=== PATIENT | female | born 1980 ===

== ENCOUNTER 2021-08-30 09:02 | Inpatient (IN) | payer MEDICAID, OTHER ==
[2021-08-30] MEDS ORDERED: METOCLOPRAMIDE 10 MG/2 ML INJ IV ONE (09:50)
[2021-08-30] MEDS ORDERED: FAMOTIDINE 20 MG/2 ML INJ IV ONE (09:50)
[2021-08-30] MEDS ORDERED: LIDOCAINE (2%) 20 MG/1 ML VIAL 20 ML MDV INFILTRATI ONE (09:51)
[2021-08-30] MEDS ORDERED: OXYTOCIN DRIP 30 UNITS/500 ML BAG IV SCH (10:00)
[2021-08-30] MEDS ORDERED: LACTATED RINGERS 1,000 ML IV SCH ×2 (10:00→22:00)
--- NOTE | 2021-08-30 10:06 | History and Physical Report ---
History of Present Illness Date of examination: 08/30/21 Date of admission: 08/30/21 09:02 Chief complaint: ERCS at 39.1 weeks Past History Past Surgical History: section - Obstetrical History Expected Date of Delivery: 09/05/21 Actual Gestation: 39 Week(s) 1 Day(s) : 2 Para: 1 Medications and Allergies Allergies Allergy/AdvReac Type Severity Reaction Status Date / Time No Known Allergies Allergy Verified 08/30/21 09:43 Home Medications Medication Instructions Recorded Confirmed Last Taken Type Albuterol Sulfate 1 inhalation IH PRN PRN 08/30/21 08/30/21 08/29/21 History One Daily Tablet 1 tab PO DAILY 08/30/21 08/30/21 08/28/21 History Active Meds: Active Medications Acetaminophen (Acetaminophen 325 Mg Tab) 650 mg PO Q4H PRN PRN Reason: Pain, Mild (1-3) Butorphanol Tartrate (Butorphanol 2 Mg/1 Ml Inj) 2 mg IV Q2H PRN PRN Reason: Pain , Severe (7-10) Citric Acid/Sodium Citrate (Bicitra Oral Liqd 30ml) 30 ml PO ONCE ONE Stop: 08/30/21 09:51 Famotidine (Famotidine 20 Mg/2 Ml Inj) 20 mg IV ONCE ONE Stop: 08/30/21 09:51 Lactated Ringer's (Lactated Ringers) 1,000 mls @ 2,250 mls/hr IV PREOP KENNY Stop: 08/31/21 10:27 Oxytocin/Sodium Chloride (Pitocin/Ns 30 Unit/500ml) 30 units in 500 mls @ 0 mls/hr IV TITR KENNY; Protocol Cefazolin Sodium (Ancef/Sterile Water 2 Gm/20 Ml) 2 gm in 20 mls @ 80 mls/hr IV PREOP NR; Protocol Lidocaine (Lidocaine (2%) 20 Mg/1 Ml Vial 20 Ml Mdv) 20 ml INFILTRATI ONCE ONE Stop: 08/30/21 09:52 Metoclopramide HCl (Metoclopramide 10 Mg/2 Ml Inj) 10 mg IV ONCE ONE Stop: 08/30/21 09:51 Nalbuphine HCl (Nalbuphine 10 Mg/1 Ml Inj) 10 mg IV Q2H PRN PRN Reason: Pain, Moderate (4-6) - Vital Signs Vital signs: Vital Signs Pulse BP Pulse Ox 83 123/78 99 08/30/21 09:40 08/30/21 09:40 08/30/21 09:40 Temp Pulse Resp BP Pulse Ox 97 H 123/78 96 08/30/21 10:00 08/30/21 09:40 08/30/21 10:00 Results Result Diagrams: 08/30/21 09:58 All other labs normal. Assessment and Plan NPO, adult nurse practitioner to OR for procedure Informed consent Law Strauss MD
[2021-08-30 10:22] LABS: Basophils % (Auto) 0.3 % (0.0-1.8); Eosinophils # (Auto) 0.2 K/mm3 (0.0-0.4); Eosinophils % (Auto) 1.4 % (0.0-4.3); Hematocrit 33.1 % (30.3-42.9); Hemoglobin 11.6 gm/dl (10.1-14.3); Lymphocytes # (Auto) 1.7 K/mm3 (1.2-5.4); Lymphocytes % (Auto) 14.8 % (13.4-35.0); Mean Corpuscular HGB Conc 35 % (30-34); Mean Corpuscular Volume 95 fl (79-97); Monocytes # (Auto) 0.7 K/mm3 (0.0-0.8); Platelet Count 266 K/mm3 (140-440); Red Blood Count 3.51 M/mm3 (3.65-5.03); Red Cell Distribution Width 13.9 % (13.2-15.2)
[2021-08-30] MEDS ORDERED: NalbUPHINE 10 MG/1 ML INJ IV PRN (11:00)
[2021-08-30] MEDS ORDERED: ACETAMINOPHEN 325 MG TAB PO PRN (11:00)
[2021-08-30] MEDS ORDERED: ceFAZolin/Water 2 GM/20 ML 2 GM/20 ML SYRINGE IV NR (11:00)
[2021-08-30] MEDS ORDERED: BUTORPHANOL 2 MG/1 ML INJ IV PRN (11:00)
[2021-08-30] MEDS ORDERED: ceFAZolin/STERILE WATER 2 GM/20 ML SYRINGE IV ONE (12:00)
[2021-08-30] MEDS ORDERED: BUPIVACAINE/PF (0.5%) 5 MG/1 ML 30 ML VIAL INFILTRATI ONE (12:27)
[2021-08-30] MEDS ORDERED: dexAMETHasone 20 MG/5 ML VIAL ONE (12:27)
[2021-08-30] MEDS ORDERED: KETOROLAC 30 MG/1 ML INJ ONE (12:27)
[2021-08-30] MEDS ORDERED: LACTATED RINGERS 1,000 ML ONE (12:27)
[2021-08-30] MEDS ORDERED: ONDANSETRON 4 MG/2 ML INJ ONE ×2 (12:27→15:00)
--- NOTE | 2021-08-30 13:06 | Procedure Note ---
OB Delivery Note - Delivery Date of Delivery: 08/30/21 Surgeon: TYESHA AZAR Estimated blood loss: other (700ml) - Section Preop diagnosis: repeat Postop diagnosis: same section procedure: repeat low transverse Disposition: PACU Complications: none Narrative: Preop diagnosis: IUP at 39.1 weeks, previous sectionx1 Postop diagnosis: Same Procedure: Repeat low transverse section via Pfannenstiel incision Surgeon: Dr. Tyesha Azar Anesthesia spinal Complications none EBL 700 ml IV fluids 1000mL Urine output 200 mL, clear Drains Pierre to gravity Findings: Viable female with weight 3210gms and 9/9, normal uterus tubes and ovaries bilaterally Procedure: Patient was consented in OB triage, taken to the operating room where she received excellent spinal anesthesia. She was then placed in the dorsal supine position with a leftward tilt. The abdomen was prepped and draped in a sterile fashion, and a timeout was verified. Adequate anesthesia was confirmed prior to the skin incision. A Pfannenstiel skin incision was made with a scalpel taken down to the underlying structures and the fascia was incised in the midline. The incision was extended laterally with curved Gonsales scissors, the superior and inferior aspects of the fascial incisions were grasped with Lakisha clamps and the rectus muscles dissected sharply. The abdomen was entered bluntly in the midline carried down inferiorly with good visualization of the bladder. The vesicouterine peritoneum was tented with Scottish forceps and incised in the midline with Metzenbaum scissors and the vesicouterine peritoneum taken down sharply. The uterine incision was then made sharply with a scalpel. The inferior and superior aspect of the uterine incisions were extended bluntly, the baby's head was delivered atraumatically. The remainder of the delivery was uncomplicated, no nuchal cord. The cord was clamped and cut and baby handed to waiting NICU team. An intact placenta with three-vessel cord delivered manually. The uterus was then cleared of all clots and debris and the uterus exteriorized. The uterine incision was closed in 2 layers of 0 vicryl with excellent hemostasis. The abdomen was then irrigated with warm normal saline and the uterus placed back into the abdomen atraumatically. A second look at the uterine incision assured hemostasis. The peritoneum was closed with 3-0 Vicryl, the rectus muscles approximated with 3-0 Vicryl, and the fascia closed with 0 Vicryl in the usual fashion. The subcuticular structures were closed with interrupted sutures of 3-0 Vicryl and the skin closed with 4-0 Monocryl. A pressure dressing was applied. All sponge needle and instrument counts were correct x2. There were no complications. Mom and baby stable to PACU. EBL 700 mL Law Azar MD
[2021-08-30] MEDS ORDERED: SIMETHICONE 80 MG CHEW TAB PO PRN (13:14)
[2021-08-30] MEDS ORDERED: LANOLIN/ZINC/DIMETHICONE (LANSINOH) 7 GM TP PRN (13:14)
[2021-08-30] MEDS ORDERED: NALOXONE 0.4 MG/1 ML INJ IV PRN (13:14)
[2021-08-30] MEDS ORDERED: IBUPROFEN 600 MG TAB PO PRN (13:14)
[2021-08-30] MEDS ORDERED: ONDANSETRON 4 MG/2 ML INJ IV PRN (13:14)
[2021-08-30] MEDS ORDERED: WITCH HAZEL/ GLYCERIN PAD TP PRN (13:14)
[2021-08-30] MEDS ORDERED: PROMETHAZINE 25 MG RECT SUPP PR PRN (13:14)
[2021-08-30] MEDS ORDERED: ePHEDrine SULFATE 50 MG/1 ML INJ ONE ×2 (13:16→14:27)
--- NOTE | 2021-08-30 13:41 | Anesthesia Day of Surgery ---
Anesthesia Day of Surgery - Day of Surgery Patient Examined: Yes Patient H&P Reviewed: Yes Patient is NPO: Yes
--- NOTE | 2021-08-30 13:41 | Anesthesia Consultation ---
Anesthesia Consult and Med Hx Date of service: 08/30/21 - Airway Anesthetic Teeth Evaluation: Good ROM Head & Neck: Adequate Mental/Hyoid Distance: Adequate Mallampati Class: Class II Intubation Access Assessment: Probably Good - Pulmonary Exam CTA: Yes - Cardiac Exam Cardiac Exam: RRR - Pre-Operative Health Status ASA Pre-Surgery Classification: ASA3 Proposed Anesthetic Plan: Spinal - Pulmonary Hx Smoking: No Hx Asthma: Yes SOB: No COPD: No Hx Pneumonia: No Hx Sleep Apnea: No - Cardiovascular System Hx Hypertension: No - Central Nervous System Hx Seizures: No Hx Psychiatric Problems: No - Endocrine Hx Renal Disease: No Hx Hypothyroidism: No Hx Hyperthyroidism: No - Hematic Hx Anemia: No Hx Sickle Cell Disease: No - Other Systems Hx Alcohol Use: Yes (Occassionally /not during preg)
--- NOTE | 2021-08-30 13:42 | Progress Note ---
Spinal Anesthesia Block - Spinal Anesthesia Block Start Time: 11:47 Stop Time: 11:50 Performed by:: MAKENZIE STRATTON Procedure: Sitting, sterile chlorahexadine 0.5% prep/drape, 1% lidocaine skin local, 25G spinal needle + introducer at L3-4, + CSF, - Heme, [1.9 ml 0.5% bupivacaine + 10 mcg dexmedetomidine] injected, drape removed, patient positioned supine with left uterine displacement, and spinal level verified to be adequate prior to surgery.
[2021-08-30] MEDS ORDERED: METHYLERGONOVINE MALEATE 0.2 MG/ML VIAL IM ONE ×2 (13:50→14:17)
[2021-08-30] MEDS ORDERED: miSOPROStol 200 MCG TAB ONE ×2 (13:59→14:37)
[2021-08-30] MEDS ORDERED: propofoL 200 MG/20 ML VIAL IV ONE (14:44)
[2021-08-30] MEDS ORDERED: KETAMINE/STERILE WATER 50 MG/ML SYRINGE ONE (14:44)
[2021-08-30] MEDS ORDERED: BICITRA ORAL LIQD 30ML PO NR (15:00)
[2021-08-30] MEDS ORDERED: SODIUM CHLORIDE 0.9% 500 ML 1,000 ML ONE (15:28)
[2021-08-30] MEDS ORDERED: PHENYLEPHRINE/NS 1,000 MCG/10 ML SYRINGE (OR USE) IV ONE (15:28)
[2021-08-30 15:29] LABS: Hemoglobin 6.1 gm/dl (10.1-14.3); Mean Corpuscular HGB Conc 35 % (30-34); Mean Corpuscular Volume 97 fl (79-97); Platelet Count 289 K/mm3 (140-440); Red Blood Count 1.82 M/mm3 (3.65-5.03); Red Cell Distribution Width 13.6 % (13.2-15.2)
[2021-08-30] MEDS ORDERED: SODIUM CHLORIDE 0.9% 500 ML 500 ML IV ONE (15:30)
[2021-08-30 15:45] LABS: Hematocrit 17.7 % (30.3-42.9)
[2021-08-30 15:48] LABS: INR 1.05 (0.87-1.13); Partial Thromboplastin Time 27.4 Sec. (24.2-36.6)
[2021-08-30] MEDS ORDERED: SODIUM CHLORIDE 0.9% 500 ML 500 ML IV SCH (15:52)
--- NOTE | 2021-08-30 15:52 | Event Note ---
Date: 08/30/21 I was called to PACU for urgent evaluation of immediate hemorrhage. At bedside patient was hypotensive and tachycardic with active vaginal bleeding with lower uterine segment atony. Patient had intermittent atony with bimanual uterine massage. She received Methergine 0.2 mg IM x3 doses, Cytotec 800 mcg per rectum, Cytotec 200 mcg orally. I called for 2 units of blood stat, I called for a second IV line to be placed immediately. I called anesthesia and asked for the OR to be open for a exam under anesthesia with D&C possible exploratory laparotomy. I explained to patient's milliliters taking patient back to the OR for active hemorrhage. Stat labs including a CBC and coags were sent by anesthesia. She was taken to the OR where excellent spinal sedation and IV sedation were administered. He was placed in the dorsal lithotomy position and prepped and draped. Exam under anesthesia revealed a boggy uterus specifically lower uterine segment atony. Sharp curettage with suction revealed small retained products of conception. The uterus was curettaged sharply with a curette until the grittiness of the basalis endometrium was appreciated in all 4 quadrants. The vaginal vault was then packed with a Kerlix. The uterus remained firm at the completion of the curettage. Intraoperatively patient received 2 units of packed red blood cells. We will check her H&H and consider transfusion of another 2 units PRBCs if necessary. Patient remained stable throughout the procedure, she will recover in the labor and delivery bed with one-on-one nursing. All of patient's body will be weighed to account for total EBL. All sponge needle and instrument counts are correct x2. Patient will continue with the Pierre catheter. Vaginal Kerlix was left in place until the morning. Law Strauss MD
--- NOTE | 2021-08-30 16:56 | Post Anesthesia Evaluation ---
- Post Anesthesia Evaluation Patient Participated: Yes Airway Patent: Yes Stable Respiratory Function: Yes Nausea/Vomiting: No Temp > 96.8F: Yes Pain Manageable: Yes Adequeate Hydration: Yes Anesthesia Complications: No Block Receding Appropriately: Yes
[2021-08-30 21:19] LABS: Total Cells Counted 100
[2021-08-30 21:21] LABS: Platelet Estimate Consistent w Auto; RBC Morphology Normal
[2021-08-30] MEDS: MORPHINE 4 MG/1 ML INJ IV PRN (21:55)
[2021-08-31 00:25] LABS: Hematocrit 34.7 % (30.3-42.9); Hemoglobin 12.2 gm/dl (10.1-14.3)
--- NOTE | 2021-08-31 01:24 | Event Note ---
Date: 08/31/21 PP hemorrhage HB 12.2, SP 4 units PRBC At bedside, firm fundus Vaginal packing removed, no active bleeding Continue PO methergine transfer to Mother/Baby Law Strauss MD
[2021-08-31] MEDS ORDERED: MORPHINE 4 MG/1 ML INJ IV ONE (01:43)
[2021-08-31 01:47] LABS: Hematocrit 32.8 % (30.3-42.9); Hemoglobin 11.6 gm/dl (10.1-14.3)
[2021-08-31] MEDS: METHYLERGONOVINE 0.2 MG TABLET PO SCH ×3 (05:41→22:19)
[2021-08-31] MEDS: MORPHINE 4 MG/1 ML INJ IV PRN (05:42)
--- NOTE | 2021-08-31 10:32 | Progress Note ---
Assessment and Plan A: S/P Repeat LTCS Delayed PPH P: Continue routine pp orders Continue Methergine as ordered Encourage ambulation D/c within 24-48 hrs if stable Subjective - Subjective Date of service: 08/31/21 Principal diagnosis: s/p repeat LTCS Patient reports: appetite normal, voiding normally, pain well controlled, flatus, ambulating normally, other (RUBRA LOCHIA WNL) [place]: doing well, bottle feeding Objective - Vital Signs Latest vital signs: Vital Signs Temp Pulse Resp BP BP Pulse Ox Pulse Ox 08/31/21 07:40 97.9 F 95 H 20 124/70 08/31/21 07:36 100 08/31/21 06:30 98.2 F 70 104/55 08/31/21 05:42 18 08/31/21 04:48 97 08/31/21 04:45 98.7 F 08/31/21 03:54 98.8 F 94 H 19 122/70 97 08/31/21 03:53 105 H 120/81 97 08/31/21 03:20 107 H 121/76 08/31/21 03:18 98 H 122/70 08/31/21 03:17 105 H 98 08/31/21 03:12 108 H 98 08/31/21 03:07 97 H 97 08/31/21 03:05 95 H 113/66 08/31/21 03:02 107 H 98 08/31/21 02:57 95 H 97 08/31/21 02:52 100 H 97 08/31/21 02:50 105 H 119/68 08/31/21 02:47 104 H 97 08/31/21 02:42 93 H 97 08/31/21 02:37 103 H 97 08/31/21 02:35 97 H 114/67 08/31/21 02:32 119 H 97 08/31/21 02:27 101 H 97 08/31/21 02:22 97 H 97 08/31/21 02:20 97 H 117/67 08/31/21 02:17 107 H 97 08/31/21 02:12 99 H 97 08/31/21 02:07 102 H 97 08/31/21 02:05 108 H 117/66 08/31/21 02:02 102 H 97 08/31/21 01:57 107 H 97 08/31/21 01:52 118 H 98 08/31/21 01:50 117 H 123/72 08/31/21 01:47 113 H 98 08/31/21 01:42 111 H 98 08/31/21 01:41 99 08/31/21 01:37 108 H 97 08/31/21 01:35 109 H 117/70 08/31/21 01:32 118 H 97 08/31/21 01:27 110 H 97 08/31/21 01:22 113 H 98 08/31/21 01:20 108 H 115/68 08/31/21 01:17 106 H 97 08/31/21 01:12 104 H 98 08/31/21 01:07 105 H 97 08/31/21 01:05 106 H 115/69 08/31/21 01:02 104 H 97 08/31/21 00:57 108 H 97 08/31/21 00:52 106 H 97 08/31/21 00:50 104 H 114/69 08/31/21 00:47 101 H 98 08/31/21 00:42 112 H 98 08/31/21 00:37 115 H 97 08/31/21 00:35 104 H 120/71 08/31/21 00:32 107 H 97 08/31/21 00:27 105 H 98 08/31/21 00:22 105 H 97 08/31/21 00:20 108 H 118/72 08/31/21 00:17 103 H 97 08/31/21 00:12 110 H 97 08/31/21 00:07 120 H 98 08/31/21 00:05 112 H 115/72 08/31/21 00:02 109 H 97 08/30/21 23:57 102 H 97 08/30/21 23:52 113 H 97 08/30/21 23:50 112 H 115/71 08/30/21 23:47 108 H 97 08/30/21 23:42 105 H 97 08/30/21 23:37 110 H 97 08/30/21 23:35 122 H 118/71 08/30/21 23:32 120 H 98 08/30/21 23:27 118 H 97 08/30/21 23:22 116 H 97 08/30/21 23:20 117 H 122/70 08/30/21 23:17 105 H 98 10/18/21 23:12 109 H 97 1018/21 23:07 110 H 98 18/21 23:05 110 H 122/73 18/21 23:02 113 H 97 1821 23:00 98 18/21 22:57 120 H 97 18/21 22:52 121 H 97 18/21 22:50 116 H 122/73 1821 22:47 126 H 98 1821 22:42 119 H 98 1821 22:37 119 H 97 1821 22:35 106 H 122/75 18/21 22:32 115 H 98 1821 22:27 128 H 98 1821 22:22 119 H 97 21 22:20 121 H 118/77 1821 22:17 121 H 97 08/30/21 22:12 115 H 98 08/30/21 22:07 104 H 97 08/30/21 22:05 109 H 112/74 08/30/21 22:02 122 H 98 1821 21:57 132 H 98 1821 21:52 121 H 98 18/21 21:50 133 H 115/75 18/21 21:47 123 H 98 1821 21:42 112 H 98 18/21 21:37 121 H 98 18/21 21:35 121 H 113/74 18/21 21:32 118 H 97 18/21 21:27 120 H 98 1821 21:22 128 H 98 18/21 21:20 126 H 115/73 18/21 21:17 127 H 97 18/21 21:12 118 H 97 1018/21 21:07 117 H 97 18/21 21:05 121 H 114/75 18/21 21:02 118 H 97 18/21 20:57 121 H 97 18/21 20:52 120 H 97 18/21 20:50 113 H 117/74 1018/21 20:47 110 H 98 18/21 20:42 118 H 97 18/21 20:37 125 H 97 18/21 20:35 121 H 121/77 10/18/ 20:32 126 H 97 18/21 20:30 98.3 F 16 121/78 18 20:27 121 H 97 18/ 20:26 112 H 121/78 98 18/21 20:22 124 H 97 18 20:20 121 H 118/73 18/21 20:17 123 H 97 18 20:12 119 H 97 1821 20:07 115 H 97 18 20:05 116 H 116/69 18 20:02 122 H 98 18/21 19:57 121 H 97 18 19:52 127 H 98 18 19:50 121 H 124/75 18 19:47 148 H 97 18 19:42 119 H 97 18 19:37 128 H 98 08/30/21 19:34 123 H 120/63 08/30/21 19:32 127 H 98 08/30/21 19:29 99.4 F 08/30/21 19:27 129 H 100 18 19:24 131 H 136/85 18 19:22 138 H 99 18 19:20 96 08/30/21 19:18 137 H 119/76 08/30/21 19:17 133 H 98 08/30/21 19:13 130 H 116/66 08/30/21 19:12 133 H 98 08/30/21 19:08 123 H 112/68 08/30/21 19:07 120 H 98 18 19:06 129 H 114/69 1821 19:02 131 H 98 1821 18:59 130 H 122/81 1821 18:57 128 H 98 1821 18:52 134 H 98 18 18:47 142 H 99 1821 18:43 139 H 113/76 18/21 18:42 142 H 100 1821 18:38 133 H 115/77 18/21 18:37 138 H 100 1821 18:33 141 H 123/74 18/21 18:32 138 H 100 18/21 18:28 136 H 122/79 1018/21 18:27 136 H 99 1821 18:23 142 H 114/80 101821 18:22 136 H 99 1821 18:18 134 H 113/72 1821 18:17 129 H 99 18 18:12 138 H 100 1821 18:09 134 H 121/58 1821 18:07 138 H 99 18 18:02 142 H 99 18 18:00 98.5 F 08/30/21 17:58 121 H 100/71 1821 17:57 122 H 99 08/30/21 17:53 115 H 108/62 08/30/21 17:52 119 H 99 08/30/21 17:48 120 H 111/62 08/30/21 17:47 130 H 98 18 17:44 123 H 119/58 08/30/21 17:42 117 H 99 08/30/21 17:38 130 H 106/74 08/30/21 17:37 129 H 99 18 17:33 127 H 104/70 18/21 17:32 128 H 98 18 17:28 130 H 104/64 18/ 17:27 130 H 98 18 17:23 115 H 111/64 1821 17:22 112 H 98 18 17:19 136 H 109/71 18 17:17 127 H 98 18 17:12 148 H 98 18 17:08 110 H 103/62 18/21 17:07 109 H 98 18 17:03 115 H 104/66 18/21 17:02 114 H 98 18/21 17:00 98.4 F 08/30/21 16:58 111 H 105/67 18/21 16:57 108 H 98 18/21 16:53 123 H 103/63 18/21 16:52 128 H 98 18/21 16:48 109 H 106/65 18/21 16:47 117 H 98 18/21 16:45 106 H 101/65 08/30/21 16:42 114 H 99/61 95 08/30/21 16:37 108 H 106/68 08/30/21 16:29 105 H 102/57 08/30/21 16:15 75 10 L 80/48 100 08/30/21 16:10 83 11 L 82/46 99 08/30/21 16:05 82 12 79/53 99 08/30/21 16:00 103 H 12 81/44 100 08/30/21 15:55 103 H 14 81/43 100 08/30/21 15:50 128 H 14 90/52 100 08/30/21 15:45 124 H 12 113/61 99 08/30/21 15:40 150 H 16 94/65 100 08/30/21 15:37 97.6 F 122 H 16 110/67 100 08/30/21 14:40 128 H 12 101/54 100 08/30/21 14:35 120 H 16 96/39 99 08/30/21 14:30 65 12 68/26 100 08/30/21 14:25 107 H 12 89/43 100 08/30/21 14:20 113 H 12 111/61 100 08/30/21 14:15 92 H 14 94/49 100 08/30/21 14:10 104 H 11 L 86/47 100 08/30/21 14:05 116 H 11 L 105/64 99 08/30/21 14:00 129 H 18 107/65 100 08/30/21 13:55 87 12 96/64 99 08/30/21 13:50 131 H 16 115/67 100 08/30/21 13:45 78 15 81/37 99 08/30/21 13:40 112 H 15 85/52 100 08/30/21 13:35 111 H 17 98/56 99 08/30/21 13:30 98 H 16 92/47 99 08/30/21 13:25 84 16 97/56 99 08/30/21 13:20 84 10 L 100/59 99 08/30/21 13:15 49 L 14 63/20 100 08/30/21 13:12 97.5 F L 68 16 82/41 99 08/30/21 11:05 88 99 08/30/21 11:00 95 H 98 08/30/21 10:55 85 98 08/30/21 10:50 82 98 08/30/21 10:45 93 H 98 08/30/21 10:40 89 98 08/30/21 10:35 92 H 98 08/30/21 10:30 86 98 Intake and Output 08/30/21 08/31/21 08/31/21 22:59 06:59 14:59 Intake Total 0 240 Output Total 200 200 Balance -200 -200 240 Intake: Oral 0 240 Output: Urine 200 200 Indwelling Catheter 200 200 Other: Total, Intake Amount 0 240 Total, Output Amount 200 200 - Exam Breasts: Present: normal Abdomen: Present: normal appearance, soft, normal bowel sounds Vulva: both: normal Uterus: Present: normal, firm, fundal height below umbilicus Extremities: Present: normal Incision: Present: normal, dry, intact - Labs Labs: Abnormal lab results 08/30/21 08/30/21 Range/Units 09:58 15:10 WBC 23.2 H (4.5-11.0) K/mm3 RBC 1.82 L (3.65-5.03) M/mm3 Hgb 6.1 L D (10.1-14.3) gm/dl Hct 17.7 L* D (30.3-42.9) % MCH 34 H (28-32) pg MCHC 35 H (30-34) % Seg Neuts % (Manual) 93.0 H (40.0-70.0) % Lymphocytes % (Manual) 6.0 L (13.4-35.0) % Seg Neutrophils # Man 21.6 H (1.8-7.7) K/mm3 Crossmatch See Detail
[2021-08-31] MEDS: HYDROcodone/ACETAMINOPHEN 5-325 MG TAB PO PRN (12:18)
[2021-08-31] MEDS: IBUPROFEN 800 MG TAB PO PRN (17:25)
[2021-08-31] MEDS: MAGNESIUM HYDROXIDE (MOM) ORAL LIQD UDC PO PRN (22:19)
[2021-09-01] MEDS: HYDROcodone/ACETAMINOPHEN 5-325 MG TAB PO PRN ×2 (00:15→10:43)
[2021-09-01] MEDS: METHYLERGONOVINE 0.2 MG TABLET PO SCH ×2 (05:44→16:50)
[2021-09-01] MEDS ORDERED: TETANUS,DIPH,PERTUSS(ACELL) VACCINE 0.5 ML SYRINGE IM ONE (06:00)
[2021-09-01] MEDS: MAGNESIUM HYDROXIDE (MOM) ORAL LIQD UDC PO PRN (10:44)
--- NOTE | 2021-09-01 12:03 | Progress Note ---
Assessment and Plan A: POD #2 s/p PP Hemorrhage/Blood Transfusion P: Follow Routine Orders D/C Home today per patient request RTO in One Week Subjective - Subjective Date of service: 09/01/21 Principal diagnosis: s/p repeat LTCS Patient reports: appetite normal, voiding normally, pain well controlled, flatus, ambulating normally : doing well, bottle feeding (and ) Objective - Vital Signs Latest vital signs: Vital Signs Temp Pulse Resp BP BP Pulse Ox Pulse Ox 09/01/21 10:43 16 09/01/21 09:58 100 09/01/21 07:40 97.4 F L 80 20 103/58 09/01/21 00:21 97.1 F L 96 H 20 113/71 99 09/01/21 00:15 18 08/31/21 21:00 98 08/31/21 15:30 98.1 F 100 H 20 103/57 Intake and Output 08/31/21 09/01/21 09/01/21 22:59 06:59 14:59 Intake Total 600 120 Output Total 400 Balance 200 120 Intake: Oral 600 120 Output: Urine 400 Void 400 Other: Total, Intake Amount 360 120 Total, Output Amount 400 # Voids Void 1 1 - Exam Breasts: Present: normal Cardiovascular: Present: Regular rate Lungs: Present: Clear to auscultation, Normal air movement Abdomen: Present: normal appearance, soft, normal bowel sounds Uterus: Present: normal, firm, fundal height below umbilicus Extremities: Present: normal Incision: Present: normal, dry, intact - Labs Labs: Abnormal lab results 08/30/21 Range/Units 09:58 Crossmatch See Detail
--- NOTE | 2021-09-01 12:05 | Discharge Summary ---
Providers - Providers Date of Admission: 08/30/21 09:02 Date of discharge: 09/01/21 Attending physician: TYESHA AZAR MD Primary care physician: TYESHA AZAR MD Hospitalization Reason for admission: section Delivery: Procedure: repeat low transverse Episiotomy: none Laceration: none Incision: normal, dry, intact Other procedures: curettage, other (blood transfusion) complications: uterine atony Discharge diagnosis: IUP at term delivered Condition at discharge: Good Disposition: 01 HOME / SELF CARE / HOMELESS Plan - Discharge Medications Prescriptions: Ibuprofen [Motrin] 600 mg PO Q8H PRN #60 tablet PRN Reason: Pain oxyCODONE /ACETAMINOPHEN [Percocet 5/325] 1 tab PO Q6HR PRN #20 tablet PRN Reason: Pain - Provider Discharge Summary Activity: routine, no sex for 6 weeks, no heavy lifting 4 weeks, no strenuous exercise Diet: routine Instructions: routine Additional instructions: [] Smoking cessation referral if applicable(refer to patient education folder for contact #) [] Refer to [facility] Booklet Call your doctor immediately for: * Fever > 100.5 * Heavy vaginal bleeding ( >1 pad per hour) * Severe persistent headache * Shortness of breath * Reddened, hot, painful area to leg or breast * Drainage or odor from incision. * Keep incision clean and dry at all times and follow doctor's instructions regarding bathing/showering - Follow up plan Follow up: TYESHA AZAR MD [Primary Care Provider] - 7 Days
[2021-09-01] MEDS: IBUPROFEN 800 MG TAB PO PRN (16:50)
[2021-09-01 17:06] VITALS: BP 106/61
== END 2021-09-01 18:00 | disposition home or self-care (01) | DRG 787 ==
LOC: APU 09:02 → OB 15:42 → LD 16:04 → OB 08-31 03:22
PROVIDERS: ADMIT Obstetrics & Gynecology; ATTEND Obstetrics & Gynecology
PROC: 10D00Z1 Extraction of Products of Conception, Low, Open Approach (ICD-10-PCS; principal; 2021-08-30)
PROC: 30233N1 Transfusion of Nonautologous Red Blood Cells into Peripheral Vein, Percutaneous Approach (ICD-10-PCS; 2021-08-30)
PROC: 3E0234Z Introduction of Serum, Toxoid and Vaccine into Muscle, Percutaneous Approach (ICD-10-PCS; 2021-09-01)
DX: O34.211 Maternal care for low transverse scar from previous cesarean delivery (principal); O72.1 Other immediate postpartum hemorrhage; Z3A.39 39 weeks gestation of pregnancy; Z37.0 Single live birth; Z20.822 Contact with and (suspected) exposure to COVID-19; O99.52 Diseases of the respiratory system complicating childbirth; J45.909 Unspecified asthma, uncomplicated; O99.893 Other specified diseases and conditions complicating puerperium; R00.1 Bradycardia, unspecified; I95.81 Postprocedural hypotension; Z23 Encounter for immunization
CPT/HCPCS: 36415; 85007; 85014; 85018; 85025; 85384; 85610; 85730; 86850; 86900; 86901; 86920; 90715; 99211; G0378; G0463; J0690; J1100; J1885; J2210; J2270; J2370; J2405; J2704; J2765; J3490; J7040; J7120; P9016; U0003